=== PATIENT | male | born 1970 | race Caucasian/White ===

== ENCOUNTER 2023-05-17 22:26 | Emergency (ER) | payer BC, OTHER ==
[~2023-05-17] VITALS: Ht 175.3 cm; Wt 80.0 kg
[2023-05-17 22:29] VITALS: BP 121/76; PULSE 87; RESP 16; TEMP 97.7; O2SAT 98
== END 2023-05-18 06:05 | disposition left against medical advice (07) ==
LOC: ER 22:26
DX: F10.129 Alcohol abuse with intoxication, unspecified (principal); Z53.21 Procedure and treatment not carried out due to patient leaving prior to being seen by health care provider
CPT/HCPCS: 99281